=== PATIENT | male | born 1995 | race Caucasian/White ===

== ENCOUNTER 2020-02-13 20:27 | Emergency (ER) | payer BC, OTHER ==
[2020-02-13 20:32] VITALS: BP 138/84; PULSE 64; RESP 18; TEMP 98.4
[2020-02-13] MEDS ORDERED: PROPARACAINE 0.5% OPHTH DROPS 15 ML BTL LEFT EYE STA (20:39)
[2020-02-13] MEDS ORDERED: SODIUM CHLORIDE 0.9% 500 ML 500 ML IV STA (21:12)
--- NOTE | 2020-02-13 21:39 | ED ---
Eye Problem HPI - General Chief complaint: Eye Problems Stated complaint: eye problems Time Seen by Provider: 02/13/20 20:38 Source: patient Mode of arrival: ambulatory Limitations: no limitations - History of Present Illness Initial comments: Patient is a 24-year-old male presenting to emergency Department with chief complaint of eye pain. Patient reports he was tearing a roof when the debris fell into both of his eyes. Patient states she was wearing protective eye gear, however it slipped around the unprotected areas and went into both of his eyes. Patient reports bilateral discomfort along with bilateral upper or lower lid swelling. States he is unable to fully open the eyes due to the irritation. Denies any blurry vision. Patient states his tetanus is up-to-date. Denies taking medication to alleviate the symptoms. Denies any alleviating or aggravating factors. States incident occurred about one hour prior to arrival. Denies wearing contact lenses. - Related Data Home Medications Medication Instructions Recorded Confirmed Naproxen 500 mg PO Q12HR 03/05/15 03/05/15 Previous Rx's Medication Instructions Recorded Erythromycin Ophth Oint [Romycin 1 applic BOTH EYES QID #1 bottle 02/13/20 Ophth Oint] Allergies Allergy/AdvReac Type Severity Reaction Status Date / Time No Known Allergies Allergy Verified 02/13/20 20:32 Review of Systems ROS Statement: Those systems with pertinent positive or pertinent negative responses have been documented in the HPI. ROS Other: All systems not noted in ROS Statement are negative. Past Medical History Past Medical History: No Reported History History of Any Multi-Drug Resistant Organisms: None Reported Additional Past Surgical History / Comment(s): LEFT WRIST RECONSTRUCTIVE SURGERY. lasik PRK Past Psychological History: No Psychological Hx Reported Smoking Status: Current every day smoker Past Alcohol Use History: None Reported Past Drug Use History: None Reported General Exam Limitations: no limitations General appearance: alert, in no apparent distress Head exam: Present: atraumatic, normocephalic, normal inspection Eye exam: Present: normal appearance, PERRL, EOMI, conjunctival injection (Bilateral). Absent: periorbital swelling, periorbital tenderness, other (No foreign bodies detected even under the eyelids. Fluorescein stain reveals no acute abnormalities. Negative Juan Miguel sign.) Pupils: Present: normal accommodation ENT exam: Present: normal exam, normal oropharynx, mucous membranes moist, TM's normal bilaterally, normal external ear exam Neck exam: Present: normal inspection, full ROM Respiratory exam: Present: normal lung sounds bilaterally Cardiovascular Exam: Present: regular rate, normal rhythm, normal heart sounds Extremities exam: Present: normal inspection, full ROM Back exam: Present: normal inspection, full ROM Neurological exam: Present: alert, oriented X3 Psychiatric exam: Present: normal affect, normal mood Skin exam: Present: warm, dry, intact, normal color Course Vital Signs 02/13/20 20:28 Temperature 98.4 F Pulse Rate 64 Respiratory 18 Rate Blood Pressure 138/84 O2 Sat by Pulse 98 Oximetry Medical Decision Making - Medical Decision Making Patient is 24-year-old male presenting to emergency Department chief complaint of eye pain. Exam patient does have bilateral conjunctival injections with bilateral upper and lower lid swelling. Patient was given immediate proparacaine drops. Patient did report some improvement in symptoms. I was not able to detect any foreign bodies or debris in his eyes. Q-tip was used to swab around the eyelids but no significant findings. Fluorescein stain reveals no acute processes. Negative Juan Miguel sign. David lens was used bilaterally. About 250 mL of fluids flushed through each before the patient aborted the flushing. Patient reports some improvement in symptoms. Visual acuity in the right eye is 20/20, left eye 20/15, bilateral 20/13. Patient will be given erythromycin ointment even though no obvious abrasions were detected. Patient was advised to put cold compress to both eyes which will help with the swelling of the eyelids. We will also provide some symptomatic relief. Patient was to follow up him fiscal agent. Return parameters discussed with patient is understanding and agreeable. Case discussed with physician. Disposition Clinical Impression: Irritation of both eyes, FB entering eye Disposition: HOME SELF-CARE Condition: Stable Instructions (If sedation given, give patient instructions): Eye Wash (Into the eye), Eye Foreign Body (ED) Additional Instructions: Take prescribed medication as directed. Apply ice compress may take Benadryl to alleviate some of the swelling in both eyes. Return to emergency department if symptoms worsen. Follow-up with an fiscal agent. Prescriptions: Erythromycin Ophth Oint [Romycin Ophth Oint] 1 applic BOTH EYES QID #1 bottle Is patient prescribed a controlled substance at d/c from ED?: No Referrals: None,Stated [Primary Care Provider] - 1-2 days Jasen Carr MD [STAFF PHYSICIAN] - 1-2 days Time of Disposition: 21:39
== END 2020-02-13 22:06 | disposition home or self-care (01) ==
LOC: EC 20:27
DX: T15.91XA Foreign body on external eye, part unspecified, right eye, initial encounter (principal); T15.92XA Foreign body on external eye, part unspecified, left eye, initial encounter; H02.841 Edema of right upper eyelid; H02.845 Edema of left lower eyelid; H02.842 Edema of right lower eyelid; H02.844 Edema of left upper eyelid; F17.200 Nicotine dependence, unspecified, uncomplicated; Z79.1 Long term (current) use of non-steroidal anti-inflammatories (NSAID); Y93.89 Activity, other specified
CPT/HCPCS: 99283

== ENCOUNTER 2020-06-25 19:34 | Observation (INO) | payer OTHER, BC ==
[2020-06-25] MEDS ORDERED: KETOROLAC 30 MG/ML 1 ML VIAL IM STA (19:51)
--- NOTE | 2020-06-25 19:59 | ED ---
General Adult HPI - General Chief complaint: Fall Stated complaint: [facility]HS RT leg injury Time Seen by Provider: 06/25/20 19:41 Source: patient, RN notes reviewed, old records reviewed Mode of arrival: wheelchair Limitations: no limitations - History of Present Illness Initial comments: 24-year-old male with right knee injury which occurred at approximately 1 PM, 7 hours prior to arrival. He states he was at work, had fallen with a popping sensation to the right knee. He states that his knee was twisted outward. He does not report a dislocation of this knee. His pain begins in the mid calf to the mid femur. His had swelling in the knee since the injury. He is unable to bend the knee at all secondary to pain. Denies numbness to the foot. Denies any other injury. He is otherwise healthy. - Related Data Home Medications Medication Instructions Recorded Confirmed Naproxen 500 mg PO Q12HR 03/05/15 03/05/15 Previous Rx's Medication Instructions Recorded Erythromycin Ophth Oint [Romycin 1 applic BOTH EYES QID #1 bottle 02/13/20 Ophth Oint] Allergies Allergy/AdvReac Type Severity Reaction Status Date / Time No Known Allergies Allergy Verified 06/25/20 19:39 Review of Systems ROS Statement: Those systems with pertinent positive or pertinent negative responses have been documented in the HPI. ROS Other: All systems not noted in ROS Statement are negative. Past Medical History Past Medical History: No Reported History History of Any Multi-Drug Resistant Organisms: None Reported Additional Past Surgical History / Comment(s): LEFT WRIST RECONSTRUCTIVE SURGERY. lasik PRK Past Psychological History: No Psychological Hx Reported Smoking Status: Current every day smoker Past Alcohol Use History: Occasional Past Drug Use History: None Reported General Exam Limitations: no limitations General appearance: alert, in no apparent distress Head exam: Present: atraumatic, normocephalic Eye exam: Present: normal appearance, PERRL Neck exam: Present: normal inspection Respiratory exam: Present: normal lung sounds bilaterally. Absent: respiratory distress, wheezes Cardiovascular Exam: Present: regular rate, normal rhythm GI/Abdominal exam: Present: soft. Absent: distended, tenderness, guarding Extremities exam: Present: tenderness, joint swelling, calf tenderness, other (Right lower extremity: Patient has significant swelling and ecchymosis of the right knee. There appears to be slight external rotation. Range of motion is not attempted secondary to severe pain. His distal pulses are intact. He does have calf tenderness and fullness on the right as well.). Absent: full ROM Course Vital Signs 06/25/20 19:36 Temperature 98.8 F Pulse Rate 64 Respiratory 20 Rate Blood Pressure 144/74 O2 Sat by Pulse 98 Oximetry Medical Decision Making - Medical Decision Making 24-year-old male presents with right knee injury. Patient states his lower extremity was twisted laterally, after slipping on some mike adhesive. Patient has significant joint effusion, ecchymosis on the medial aspect of the knee. Severe pain. No range of motion or ligamentous testing is performed given the severe pain and concern for significant ligament injuries. Patient has tenderness in the proximal and mid calf with significant swelling. X-ray performed, negative for acute fracture. I did perform CT with contrast to evaluate the vasculature. Patient has preserved distal pulses, 2+ DP and PT pulses and normal sensation in the foot. I discussed case with Dr. Tejeda, will admit for neurovascular checks every 3 hours. Patient placed in a knee immobilizer, ice will be continuously applied. Pain control and anti- inflammatories prescribed. - Lab Data Result diagrams: 06/25/20 20:07 06/25/20 20:07 Lab Results 06/25/20 06/25/20 06/25/20 Range/Units 20:07 20:07 20:07 WBC 10.1 (3.8-10.6) k/uL RBC 4.38 (4.30-5.90) m/uL Hgb 13.4 (13.0-17.5) gm/dL Hct 41.0 (39.0-53.0) % MCV 93.6 (80.0-100.0) fL MCH 30.6 (25.0-35.0) pg MCHC 32.7 (31.0-37.0) g/dL RDW 12.3 (11.5-15.5) % Plt Count 278 (150-450) k/uL Neutrophils % 79 % Lymphocytes % 14 % Monocytes % 4 % Eosinophils % 2 % Basophils % 1 % Neutrophils # 7.9 H (1.3-7.7) k/uL Lymphocytes # 1.4 (1.0-4.8) k/uL Monocytes # 0.4 (0-1.0) k/uL Eosinophils # 0.2 (0-0.7) k/uL Basophils # 0.1 (0-0.2) k/uL PT 10.5 (9.0-12.0) sec INR 1.0 (<1.2) APTT 25.0 (22.0-30.0) sec Sodium 136 L (137-145) mmol/L Potassium 4.5 (3.5-5.1) mmol/L Chloride 102 (98-107) mmol/L Carbon Dioxide 26 (22-30) mmol/L Anion Gap 8 mmol/L BUN 20 (9-20) mg/dL Creatinine 1.19 (0.66-1.25) mg/dL Est GFR (CKD-EPI)AfAm >90 (>60 ml/min/1.73 sqM) Est GFR (CKD-EPI)NonAf 85 (>60 ml/min/1.73 sqM) Glucose 99 (74-99) mg/dL Calcium 9.5 (8.4-10.2) mg/dL Total Bilirubin 0.4 (0.2-1.3) mg/dL AST 33 (17-59) U/L ALT 18 (4-49) U/L Alkaline Phosphatase 59 (38-126) U/L Total Protein 7.3 (6.3-8.2) g/dL Albumin 4.8 (3.5-5.0) g/dL Disposition Clinical Impression: Effusion, right knee, Injury of knee, ligament Disposition: ADMITTED IP TO THIS [facility] Condition: Stable Is patient prescribed a controlled substance at d/c from ED?: No Referrals: None,Stated [Primary Care Provider] - 1-2 days Decision to Admit Reason: Admit from EC Decision Date: 06/25/20 Decision Time: 21:05
[2020-06-25] MEDS ORDERED: RX INFO: IV CONTRAST WAS GIVEN 1 EACH MISC MISCELLANE PRN (20:02)
[2020-06-25 20:19] LABS: Basophils # (A) 0.1 k/uL (0-0.2); Basophils % (A) 1 %; Eosinophils # (A) 0.2 k/uL (0-0.7); Eosinophils % (A) 2 %; HGB 13.4 gm/dL (13.0-17.5); Lymphocytes # (A) 1.4 k/uL (1.0-4.8); Lymphocytes % (A) 14 %; MCH 30.6 pg (25.0-35.0); MCHC 32.7 g/dL (31.0-37.0); MCV 93.6 fL (80.0-100.0); Mean Platelet Volume 7.3; Monocytes # (A) 0.4 k/uL (0-1.0); Monocytes % (A) 4 %; Neutrophils # (A) 7.9 k/uL (1.3-7.7); Neutrophils % (A) 79 %; Platelet Count 278 k/uL (150-450); RBC 4.38 m/uL (4.30-5.90); RDW 12.3 % (11.5-15.5); WBC 10.1 k/uL (3.8-10.6)
[2020-06-25 20:38] LABS: Prothrombin Time 10.5 sec (9.0-12.0)
[2020-06-25 20:41] LABS: ALT 18 U/L (4-49); AST 33 U/L (17-59); African American GFR (CKD) >90 (>60 ml/min/1.73 sqM); Albumin 4.8 g/dL (3.5-5.0); Alkaline Phosphatase 59 U/L (38-126); Anion Gap 8 mmol/L; Blood Urea Nitrogen 20 mg/dL (9-20); Calcium 9.5 mg/dL (8.4-10.2); Carbon Dioxide 26 mmol/L (22-30); Chloride 102 mmol/L (98-107); Glucose 99 mg/dL (74-99); Non-African American GFR(CKD) 85 (>60 ml/min/1.73 sqM); Potassium 4.5 mmol/L (3.5-5.1); Sodium 136 mmol/L (137-145); Total Bilirubin 0.4 mg/dL (0.2-1.3); Total Protein 7.3 g/dL (6.3-8.2)
[2020-06-25] MEDS ORDERED: HYDROmorphone 0.5 MG/0.5 ML SYRINGE IVP PRN (20:59)
[2020-06-25] MEDS ORDERED: ONDANSETRON 4 MG/2 ML VIAL IVP PRN (20:59)
[2020-06-25] MEDS ORDERED: KETOROLAC 30 MG/ML 1 ML VIAL IVP PRN (20:59)
[2020-06-25] MEDS ORDERED: NALOXONE 0.4 MG/ML 1 ML VIAL IV PRN (20:59)
[2020-06-25] MEDS ORDERED: ACETAMINOPHEN TAB 325 MG TAB PO PRN (20:59)
[2020-06-25] MEDS ORDERED: SODIUM CHLORIDE 0.9% 1,000 ML IV SCH (21:00)
--- NOTE | 2020-06-25 21:17 | XR ---
PROCEDURE: XR knee complete RT - 3V DATE AND TIME: 06/25/2020 8:33 PM CLINICAL INDICATION: PHH; trauma, pain and swelling TECHNIQUE: Department protocol COMPARISON: None FINDINGS: There is no fracture or malalignment. There is marked soft tissue swelling anterior to the patella and the patellar tendon and the tibial t uberosity. No soft tissue emphysema. No radiopaque foreign body. IMPRESSION: Anterior soft tissue swelling.
--- NOTE | 2020-06-25 21:38 | CT ---
EXAMINATION TYPE: CT angio lower extremity RT with contrast and with 3-D reconstruction renderings DATE OF EXAM: 06/25/2020 8:48 PM COMPARISON: Radiographs 06/25/2020 HISTORY: Dislocation and swelling to right knee CT DLP: 1099.6 mGycm Automated exposure control for dose reduction was used. TECHNIQUE: Performed with IV Contrast, patient injected with 100 mL of Isovue 370. FINDINGS: Imaging was obtained from a level above the superior iliac crests contiguously to the level of the lower legs during arterial contrast enhancement of the vascular structures. SKELETAL STRUCTURES: There is no fracture or malalignment. SOFT TISSUES: The extensive anterior subcutaneous soft tissue swelling seen on the comparison radiogr aphs is redemonstrated, extending both laterally and medially from its predominant anterior location. In addition, the upper and mid right leg musculature demonstrates diffuse edematous changes such that the muscular volume on the right is greater than that seen of the left upper and mid leg musculature . This involves all compartments, the anterior, lateral, superficial and deep posterior compartments of the leg. ANGIOGRAPHIC FINDINGS: The aortoiliac inflow is widely patent. The right and left common femoral, sup erficial and profunda femoral, popliteal, tibial peroneal trunk are all widely patent bilaterally and symmetrically. There is a 3 vessel runoff bilaterally. OTHER: No additional findings. IMPRESSION: 1. EXTENSIVE SUBCUTANEOUS AND MUSCULAR COMPARTMENTAL SWELLING. 2. NO FRACTURE/MALALIGNMENT. 3. NO ARTERIAL ABNORMALITIES.
[2020-06-26 02:08] VITALS: TEMP 97.7
--- NOTE | 2020-06-26 09:30 | P.HPOR ---
<Inge Potter J - Last Filed: 06/26/20 09:31> History of Present Illness H&P Date: 06/26/20 Chief Complaint: Right knee dislocation The patient is a 24-year-old healthy male who presented to the emergency department last night for the right knee injury. He states approximately at 1 PM he was working on a roof and slipped and felt his knee pop and twist. He was unable to bend the knee and unable to fully bear weight on the leg without significant pain. Most of his pain is on the inside of the knee. X-rays were taken and the patient was placed in a knee immobilizer. The patient was ad mitted for close observation for compartment syndrome and neurovascular compromise to the leg. CT angio was completed on the right lower extremity revealed extensive subcutaneous and muscular compartmental swelling with no arterial abnormalities. Today, the patient states that he is having pain in the knee but does not want to take pain medication for it. The pain is tolerable while laying in bed and moving the leg. The patient does have a tear on brace at home from a previous knee fracture in the past but states the knee immobilizer is more comfortable at this time. Review of Systems Constitutional: Denies chills, Denies fever Cardiovascular: Denies chest pain, Denies shortness of breath Respiratory: Denies cough Gastrointestinal: Denies abdominal pain, Denies diarrhea, Denies nausea, Denies vomiting Musculoskeletal: right: knee pain, knee stiffness, knee swelling Past Medical History Past Medical History: No Reported History History of Any Multi-Drug Resistant Organisms: None Reported Additional Past Surgical History / Comment(s): LEFT WRIST RECONSTRUCTIVE SURGERY 2010. lasik PRK 2014 Past Anesthesia/Blood Transfusion Reactions: Previous Problems w/ Anesthesia Additional Past Anesthesia/Blood Transfusion Reaction / Comment(s): issues with waking up when having anesthesia Past Psychological History: No Psychological Hx Reported Smoking Status: Current every day smoker Past Alcohol Use History: Occasional Past Drug Use History: None Reported Medications and Allergies Home Medications Medication Instructions Recorded Confirmed Type No Known Home Medications 06/25/20 06/25/20 History Allergies Allergy/AdvReac Type Severity Reaction Status Date / Time No Known Allergies Allergy Verified 06/25/20 21:13 Physical Examination The patient is a 24-year-old male in no acute distress. He is alert and oriented 3. Exam of the bilateral upper extremities reveal no obvious defo rmity or pain upon range of motion. Exam of the right knee reveals a knee immobilizer is in place. This was opened. No lacerations, abrasions or open wounds. There is a moderate effusion present. Swelling mostly on the medial aspect of the knee. He is extremely guarded on exam. No patellar laxity. There is gross laxity to the MCL. ROM not tested due to pain and guarding. Intact active dorsiflexion and plantar flexion. Neurovascular status is intact to the foot and leg, able to feel light touch the the entire foot and lower leg. No pain with palpation of the foot or ankle. Foot is warm and well-perfused with brisk capillary refill. Palpable, symmetric dorsalis pedis and tibialis p osterior pulses 2+. Results X-rays of the right knee dated 06/25/2020 reveals no acute fracture or dislocation seen. Soft tissue swelling present. CT angio of the right lower extremity reveals extensive subcutaneous and muscular compartmental swelling. No fracture or arterial abnormalities. - Labs Labs: Abnormal Lab Results - Last 24 Hours (Table) 06/25/20 06/25/20 Range/Units 20:07 20:07 Neutrophils # 7.9 H (1.3-7.7) k/uL Sodium 136 L (137-145) mmol/L H & H 06/25/20 Range/Units 20:07 Hgb 13.4 (13.0-17.5) gm/dL Hct 41.0 (39.0-53.0) % Coagulation 06/25/20 Range/Units 20:07 INR 1.0 (<1.2) Result Diagrams: 06/25/20 20:07 06/25/20 20:07 Assessment and Plan (1) Effusion, right knee Current Visit: Yes Status: Acute Code(s): M25.461 - EFFUSION, RIGHT KNEE SNOMED Code(s): 502779803937855 (2) Injury of knee, ligament Current Visit: Yes Status: Acute Code(s): S89.90XA - UNSPECIFIED INJURY OF UNSPECIFIED LOWER LEG, INIT ENCNTR SNOMED Code(s): 433307994 Plan: The clinical and x-ray findings were discussed with the patient. The case was discussed at length with Dr. Tejeda. An MRI of the right knee will be ordered today. If unable to perform MRI today, the patient may discharge home w ith outpatient follow-up. If the MRI is able to be completed today, the patient will be discharged home after the MRI is completed. He is to continue toe-touch weightbearing to the right lower extremity. He may use crutches. Continue in knee immobilizer or may use TROM brace that he has at home. He may use Tylenol or Motrin over the counter as needed for pain. He declines opioids at this zaynab e. Continue ice and elevation of the right knee. All questions were answered to the best of my ability. The patient will follow-up with Dr. Constantino next week for further evaluation and possible surgical intervention. <Gareth Tejeda - Last Filed: 06/26/20 13:27> Results - Labs Labs: Abnormal Lab Results - Last 24 Hours (Table) 06/25/20 06/25/20 Range/Units 20:07 20:07 Neutrophils # 7.9 H (1.3-7.7) k/uL Sodium 136 L (137-145) mmol/L H & H 06/25/20 Range/Units 20:07 Hgb 13.4 (13.0-17.5) gm/dL Hct 41.0 (39.0-53.0) % Coagulation 06/25/20 Range/Units 20:07 INR 1.0 (<1.2) Result Diagrams: 06/25/20 20:07 06/25/20 20:07 Assessment and Plan Plan: Discussed with JESSICA Potter and agree with above (amendments/correction noted below). The patient was also seen and examined by me. S: The patient works in [employer]. He started to fall and moved to avoid heat stack. He states that his body went one way and his leg went the other way. Initially, he was able to bear weight and states there was not much pain. The swelling and pain progressively increased. At times, he states that the leg "feels like it's on fire." The pain at rest is relatively mild and tolerable. 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 If he bumps the tibial tubercle, it will sometimes swell up for days. The patient does smoke about half pack a day. O: Moderate effusion in diffuse soft tissue swelling throughout the medial aspect and the and proximal leg. Compartments are soft and compressible but quite tender to palpation. Excellent distal perfusion with 2+ dorsalis pedis and tibialis posterior pulses (symmetric to the contralateral leg). Intact gross motor function with dorsiflexion (reproduces pain at the knee), plantarflexion and EHL function. Gentle passive flexion-extension reveals a smooth articulation of the knee. Gross laxity medially with valgus stress. Imaging: X-rays and computed tomography scan of the right knee were reviewed: No obvious fractures. No gross malalignment. The joint spaces are symmetric. Extensive soft tissue showing throughout the anteromedial portion of the knee and leg. The ACL and PCL appear grossly intact. A: 1. Near-dislocation of the right knee with grade 3 MCL tear status post injury on 06/25/20 2. Nicotine addiction/tobacco abuse P: We reviewed the clinical and x-ray findings in detail. I explained that this is a high-grade ligamentous injury. Recommend obtaining an MRI to further evaluate the ligamentous structures about the knee. He was instructed to maintain strict nonweightbearing status (touchdown only). We did discuss possible signs and symptoms of compartment syndrome. He was instructed to call the office or return to the emergency department immediately if these develop. Continue ice, elevation and PRN pain management. We briefly reviewed future treatment options, including splinting, bracing, therapy and surgical repair/reconstruction. Follow-up outpatient with Dr. Constantino next week for further evaluation treatment recommendations. Gareth Tejeda D.O. [facility]
[2020-06-26 15:21] VITALS: BP 120/74; PULSE 56; RESP 16
--- NOTE | 2020-06-26 18:23 | MR ---
EXAMINATION TYPE: MR knee RT wo con DATE OF EXAM: 06/26/2020 COMPARISON: None HISTORY: Knee dislocation. Pain and swelling. Multiplanar multiecho imaging of the right knee was performed with no contrast. FINDINGS: The anterior posterior cruciate ligaments are intact. There is a mild knee joint effusion. The collat eral ligaments are intact. There is subcutaneous edema around the knee joint. There is more extensive edema anterior to the tibial tubercle. The patella is intact. The medial and lateral menisci are intact. I see no evidence of meniscal tear. There is no evidence o f bone edema. Joint spaces are fairly normal. IMPRESSION: No evidence of ligamentous or meniscal tear. No fracture. Mild knee joint effusion. Extensive subcutaneous edema around the knee.
--- NOTE | 2020-06-29 09:41 | P.DS ---
Providers Date of admission: 06/25/20 21:00 Expected date of discharge: 06/26/20 Attending physician: Gareth Tejeda DO Primary care physician: Stated None - Discharge Diagnosis(es) (1) Effusion, right knee Status: Acute (2) Injury of knee, ligament Status: Acute Hospital Course: The patient is a 24-year-old healthy male who presented to the emergency department on 06/25/2020 for the right knee injury. He states approximately at 1 PM he was working on a roof and slipped and felt his knee pop and twist. He was unable to bend the knee and unable to fully bear weight on the leg without significant pain. Most of his pain is on the inside of the knee. X-rays were taken and the patient was placed in a knee immobilizer. The patient was admitted for close observation for compartment syndrome and neurovascular compromise to the leg. CT angio was completed on the right lower extremity revealed extensive subcutaneous and muscular compartmental swelling with no arterial abnormalities. Today, the patient states that he is having pain in the knee but does not want to take pain medication for it. The pain is tolerable while laying in bed and moving the leg. The patient does have a TROM on brace at home from a previous knee fracture in the past but states the knee immobilizer is more comfortable at this time. On the day of discharge, he is alert and oriented 3. Exam of the bilateral upper extremities reveal no obvious deformity or pain upon range of motion. Exam of the right knee reveals a knee immobilizer is in place. This was opened. No lacerations, abrasions or open wounds. There is a moderate effusion present. Swelling mostly on the medial aspect of the knee. He is extremely guarded on exam. No patellar laxity. There is gross laxity to the MCL. ROM not tested due to pain and guarding. Intact active dorsiflexion and plantar flexion. Neurovascular status is intact to the foot and leg, able to feel light touch the the entire foot and lower leg. No pain with palpation of the foot or ankle. Foot is warm and well-perfused with brisk capillary refill. Palpable, symmetric dorsalis pedis and tibialis posterior pulses 2+. An MRI of the knee has been obtained and he may discharge home today. He will follow up with Dr. Constantino in the office next week. He was instructed to maintain strict nonweightbearing status (touchdown only). We did discuss possible signs and symptoms of compartment syndrome. He was instructed to call the office or return to the emergency department immediately if these develop. Continue ice, elevation and PRN pain management. Pertinent Studies: Laboratory Tests 06/25/20 06/25/20 20:07 20:07 WBC 10.1 RBC 4.38 Hgb 13.4 Hct 41.0 Neutrophils # 7.9 H Sodium 136 L Patient Condition at Discharge: Good Plan - Discharge Summary New Discharge Prescriptions: No Action No Known Home Medications Discharge Medication List No Known Home Medications 06/25/20 [History] Follow up Appointment(s)/Referral(s): None,Stated [Primary Care Provider] - 1-2 days Farhan Constantino MD [STAFF PHYSICIAN] - 1 Week Ambulatory/Diagnostic Orders: Crutches [DME.AMB1] Location: None Selected Patient Instructions/Handouts: Swollen Knee Joint (GEN) Activity/Diet/Wound Care/Special Instructions: Toe touch weightbearing with crutches Keep immobilizer or knee brace in place except for bathing Ice and elevate knee Follow up with Dr. Constantino next week. Discharge Disposition: HOME SELF-CARE
== END 2020-06-26 19:50 | disposition home or self-care (01) ==
LOC: EC 19:34 → 1SOBS 21:00
PROVIDERS: ADMIT Orthopaedic Surgery; ATTEND Orthopaedic Surgery
DX: S83.411A Sprain of medial collateral ligament of right knee, initial encounter (principal); M25.461 Effusion, right knee; M92.50 Unspecified juvenile osteochondrosis of tibia and fibula; F17.210 Nicotine dependence, cigarettes, uncomplicated; Z79.1 Long term (current) use of non-steroidal anti-inflammatories (NSAID); Z79.899 Other long term (current) drug therapy; W01.0XXA Fall on same level from slipping, tripping and stumbling without subsequent striking against object, initial encounter; X50.1XXA Overexertion from prolonged static or awkward postures, initial encounter; Y99.0 Civilian activity done for income or pay
CPT/HCPCS: 96374; 99285; 36415; 80053; 85025; 85610; 85730; 73562; 73706; 73721; G0378 ×2; L1830; J1885; Q9967

== ENCOUNTER → 2022-12-05 | Outpatient (CLI) | payer OTHER ==
--- NOTE | 2022-12-05 17:39 | CT ---
EXAMINATION TYPE: CT lumbar spine wo con DATE OF EXAM: 12/05/2022 COMPARISON: None HISTORY: Severe low back pain x8day with right leg numbness. CT DLP: 658.1 mGycm Automated exposure control for dose reduction was used. Images obtained from the level of T12-S2 vertebra with no contrast. Lumbar vertebrae have normal spacing and alignment. Posterior elements are intact. No lumbar paraspin al mass. No compression fracture. No evidence of any lumbar disc herniation. No central spinal stenos is. The sacroiliac joints appear intact. No focal bone destruction. IMPRESSION: Normal CT scan of the lumbar spine.
== END | disposition home or self-care (01) ==
LOC: RADCTMAIN 16:43
PROVIDERS: ATTEND Family Medicine
DX: M54.16 Radiculopathy, lumbar region (principal); M54.50 Low back pain, unspecified
CPT/HCPCS: 72131

== ENCOUNTER 2024-10-03 10:30 | Emergency (ER) | payer OTHER ==
[2024-10-03 10:34] VITALS: RESP 18; TEMP 97.9
--- NOTE | 2024-10-03 10:51 | ED ---
General Adult HPI - General Chief complaint: Extremity Injury, Upper Stated complaint: L shoulder injury Time Seen by Provider: 10/03/24 10:42 Source: patient, RN notes reviewed Mode of arrival: ambulatory Limitations: no limitations - History of Present Illness Initial comments: This is a 29-year-old male presenting with left shoulder pain (9 out of 10) x 2 days. Patient states he slept left arm across his body 2 nights ago and awoke with left shoulder pain and numbness radiating to his left hand/fingers. Patient states he is having difficulty abducting his left arm from his body. Denies recent trauma to the area otherwise. Endorses history of left wrist surgery over 10 years ago. For, chills, chest pain, dyspnea, abdominal pain, N/V/D, dizziness Onset/Timin -: days(s) Location: left, upper extremity Radiation: distal Severity scale (1-10): 9 Consistency: constant Improves with: immobilization Worsens with: movement - Related Data Previous Rx's Medication Instructions Recorded Ibuprofen [Motrin] 800 mg PO Q8HR PRN #30 tab 10/03/24 Orphenadrine [Norflex] 100 mg PO Q12H #14 tab 10/03/24 Allergies Allergy/AdvReac Type Severity Reaction Status Date / Time No Known Allergies Allergy Verified 10/03/24 10:31 Review of Systems ROS Statement: Those systems with pertinent positive or pertinent negative responses have been documented in the HPI. ROS Other: All systems not noted in ROS Statement are negative. Past Medical History Past Medical History: No Reported History History of Any Multi-Drug Resistant Organisms: None Reported Additional Past Surgical History / Comment(s): LEFT WRIST RECONSTRUCTIVE SURGERY 2010. lasik PRK 2014 Past Anesthesia/Blood Transfusion Reactions: Previous Problems w/ Anesthesia Additional Past Anesthesia/Blood Transfusion Reaction / Comment(s): issues with waking up when having anesthesia Past Psychological History: No Psychological Hx Reported Smoking Status: Former smoker Past Alcohol Use History: Occasional Past Drug Use History: None Reported General Exam Limitations: no limitations General appearance: alert, in no apparent distress Head exam: Present: atraumatic, normocephalic, normal inspection Eye exam: Present: normal appearance, PERRL, EOMI. Absent: scleral icterus, c onjunctival injection, periorbital swelling ENT exam: Present: normal exam, mucous membranes moist Neck exam: Present: normal inspection. Absent: tenderness, meningismus, lymphadenopathy Respiratory exam: Present: normal lung sounds bilaterally. Absent: respiratory distress, wheezes, rales, rhonchi, stridor Cardiovascular Exam: Present: regular rate, normal rhythm, normal heart sounds. Absent: systolic murmur, diastolic murmur, rubs, gallop, clicks GI/Abdominal exam: Present: soft, normal bowel sounds. Absent: distended, tenderness, guarding, rebound, rigid Extremities exam: Present: tenderness (Positive lateral shoulder tenderness and left trapezius muscle spasm/tenderness.), normal capillary refill, other (Shoulder anterior flexion has normal range of motion. Patient able to abduct left arm to shoulder level only. Left arm distal neurovascular intact. Radial pulse +2, capillary refill less than 2 seconds.). Absent: full ROM, pedal edema, joint swelling, calf tenderness Back exam: Present: normal inspection, muscle spasm, paraspinal tenderness (Left cervical paraspinal muscle spasm and tenderness.), other (Positive Spurling test to the left side). Absent: vertebral tenderness Neurological exam: Present: alert, oriented X3, CN II-XII intact Psychiatric exam: Present: normal affect, normal mood Skin exam: Present: warm, dry, intact, normal color. Absent: rash Course Vital Signs 10/03/24 10/03/24 10:31 12:31 Temperature 97.9 F Pulse Rate 73 59 L Respiratory 18 18 Rate Blood Pressure 148/98 141/88 O2 Sat by Pulse 99 98 Oximetry Medical Decision Making - Medical Decision Making Was pt. sent in by a medical professional or institution (, PA, CITY PLANNING AIDE, urgent care, hospital, or residential...) When possible be specific @ -No Did you speak to anyone other than the patient for history (EMS, parent, family, police, friend...)? What history was obtained from this source @ -No Did you review nursing and triage notes (agree or disagree)? Why? @ -I reviewed and agree with nursing and triage notes Were old charts reviewed (outside hosp., previous admission, EMS record, old EKG, old radiological studies, urgent care reports/EKG's, residential records)? Report findings @ -No old charts were reviewed Differential Diagnosis (chest pain, altered mental status, abdominal pain women, abdominal pain men, vaginal bleeding, weakness, fever, dyspnea, syncope, headache, dizziness, GI bleed, back pain, seizure, CVA, palpatations, mental health, musculoskeletal)? @ -Shoulder dislocation, AC joint sprain, shoulder impingement, rotator cuff sprain/tear, cervical stenosis, cervical impingement, clavicular fracture, humeral fracture, scapular fracture, this is not an exhaustive list. EKG interpreted by me (3pts min.). @ -Not done X-rays interpreted by me (1pt min.). @ -Shoulder x-ray revealed separation of the AC joint but otherwise no obvious fracture or dislocation. CT interpreted by me (1pt min.). @ -None done U/S interpreted by me (1pt. min.). @ -None done What testing was considered but not performed or refused? (CT, X-rays, U/S, labs)? Why? @ -None What meds were considered but not given or refused? Why? @ -None Did you discuss the management of the patient with other professionals (professionals i.e. , PA, [employer] PLANNING AIDE, lab, RT, psych nurse, oncology social worker, reticle printer, teacher, logistics supply officer, classification case manager)? Give summary @ -No Was smoking cessation discussed for >3mins.? @ -No Was critical care preformed (if so, how long)? @ -No Were there social determinants of health that impacted care today? How? (Homelessness, low income, unemployed, alcoholism, drug addiction, transportation, low edu. Level, literacy, decrease access to med. care, penitentiary, rehab)? @ -No Was there de-escalation of care discussed even if they declined (Discuss DNR or withdrawal of care, Hospice)? DNR status @ -No What co-morbidities impacted this encounter? (DM, HTN, Smoking, COPD, CAD, Cancer, CVA, ARF, Chemo, Hep., AIDS, mental health diagnosis, sleep apnea, morbid obesity)? @ -None Was patient admitted / discharged? Hospital course, mention meds given and route, prescriptions, significant lab abnormalities, going to OR and other pertinent info. @ -Discharge. Left shoulder x-ray revealed some increased distance noted between AC joint. Initial IM Toradol and Norflex provided no relief patient. IM Toradol and Dilaudid provided patient with some pain relief noted. P.o. Motrin and Norflex sent to pharmacy. Patient provided sling and advised follow- up with orthopedics. Undiagnosed new problem with uncertain prognosis? @ -No Drug Therapy requiring intensive monitoring for toxicity (Heparin, Nitro, Insulin, Cardizem)? @ -No Were any procedures done? @ -No Diagnosis/symptom? @ -Shoulder sprain, AC joint separation Acute, or Chronic, or Acute on Chronic? @ -Acute Uncomplicated (without systemic symptoms) or Complicated (systemic symptoms)? @ -Uncomplicated Side effects of treatment? @ -No Exacerbation, Progression, or Severe Exacerbation? @ -No Poses a threat to life or bodily function? How? (Chest pain, [place], [place], pneumonia, PE, COPD, DKA, ARF, appy, cholecystitis, CVA, Diverticulitis, Homicidal, Suicidal, threat to staff... and all critical care pts) @ -No Disposition Clinical Impression: Acromioclavicular (joint) (ligament) sprain Disposition: HOME SELF-CARE Condition: Good Instructions (If sedation given, give patient instructions): Shoulder Sprain (ED) Prescriptions: Ibuprofen [Motrin] 800 mg PO Q8HR PRN #30 tab PRN Reason: Pain Orphenadrine [Norflex] 100 mg PO Q12H #14 tab Is patient prescribed a controlled substance at d/c from ED?: No Referrals: None,Stated [REFERRING] - 1-2 days Time of Disposition: 12:10
[2024-10-03] MEDS: KETOROLAC 15 MG/ML 1 ML VIAL IM STA ×2 (11:04→12:28)
[2024-10-03] MEDS: ORPHENADRINE 30 MG/ML 2 ML VIAL IM STA (11:04)
--- NOTE | 2024-10-03 11:42 | XR ---
EXAMINATION TYPE: XR shoulder complete LT DATE OF EXAM: 10/03/2024 11:24 AM COMPARISON: None. CLINICAL INDICATION: Male, 29 years old with history of Pain, limited range of motion, TECHNIQUE: XR shoulder complete LT 4 view(s) obtained. FINDINGS: The humeral head articulates with the glenoid. The acromio-clavicular junction has a space up to 0.9 cm. No elevation or depression of the distal ac romion is evident. If there is clinical concern for acromioclavicular joint separation, without with weight study could be performed. No acute fractures or dislocations are evident. A follow up study can be performed 7-10 days from acute trauma for continued pain. MRI can be perfor med if soft tissue evaluation would be of benefit. IMPRESSION: 1. No acute osseous shoulder abnormality. 2. If there is clinical concern for acromioclavicular joint separation, without with weight study cou ld be performed. [facility], , 10/03/2024 11:39 AM
[2024-10-03] MEDS: HYDROmorphone 0.5 MG/0.5 ML SYRINGE IM STA (12:27)
[2024-10-03 12:33] VITALS: BP 141/88; PULSE 59
== END 2024-10-03 12:34 | disposition home or self-care (01) ==
LOC: EC 10:30
DX: S43.52XA Sprain of left acromioclavicular joint, initial encounter (principal); Z87.891 Personal history of nicotine dependence; X58.XXXA Exposure to other specified factors, initial encounter
CPT/HCPCS: 73030; 99283; 96372 ×2; J2360; J1885